=== PATIENT | female | born 1980 ===

== ENCOUNTER 2018-11-01 06:05 | Inpatient (IN) | payer MEDICAID | END 2018-11-04 15:00 | disposition home or self-care (01) | DRG 651 | LOC: C.EROB 06:05 → C.4D 07:13 → C.4M 16:22 | PROC: 10D00Z1 Extraction of Products of Conception, Low, Open Approach (ICD-10-PCS; principal; 2018-11-01) | DX: O42.02 Full-term premature rupture of membranes, onset of labor within 24 hours of rupture (principal); O76 Abnormality in fetal heart rate and rhythm complicating labor and delivery; Z3A.38 38 weeks gestation of pregnancy; Z37.0 Single live birth ==